=== PATIENT | male | born 1990 | race Caucasian/White ===

== ENCOUNTER → 2019-12-17 14:51 | Outpatient (BNVA) | payer OTHER, SELFPAY | PROVIDERS: Visit Provider Nurse Practitioner Family | DX: R05 Cough (principal); R43.0 Anosmia; R43.2 Parageusia; R19.7 Diarrhea, unspecified; R51 Headache | CPT/HCPCS: 87635 ==

== ENCOUNTER 2020-06-12 19:26 | Emergency (ER) | payer OTHER, SELFPAY ==
[2020-06-12 19:30] VITALS: BP 148/71; PULSE 108; RESP 18; TEMP 36.9; O2SAT 96; BMI 25.1
[2020-06-12] MEDS: ondansetron 2 mg/ML SDV 2 mL 4 MG IVP (20:01)
[2020-06-12] MEDS: sodium chloride 0.9% 1,000 ML 999 ML IV (20:01)
[2020-06-12 20:03] VITALS: BP 129/83; PULSE 94; O2SAT 98
--- NOTE | 2020-06-12 20:08 | CTR_ITS ---
PROCEDURE INFORMATION: Exam: CT Abdomen And Pelvis With Contrast Exam date and time: 06/12/2020 8:11 PM Age: 29 years old Clinical indication: Nausea and vomiting and other: Black tarry stool; Abdominal pain; Generalized; Additional info: Abd pain TECHNIQUE: Imaging protocol: Computed tomography of the abdomen and pelvis with contrast. Radiation optimization: All CT scans at this facility use at least one of these dose optimization techniques: automated exposure control; mA and/or kV adjustment per patient size (includes targeted exams where dose is matched to clinical indication); or iterative reconstruction. Contrast material: OMNI 300; Contrast volume: 95 ml; Contrast route: INTRAVENOUS (IV); COMPARISON: No relevant prior studies available. RADIATION DOSE METRICS: Total DLP (mGy-cm): 400.82 FINDINGS: Liver: Normal. No mass. Gallbladder and bile ducts: Normal. No calcified stones. No ductal dilation. Pancreas: Normal. No ductal dilation. Spleen: Normal. No splenomegaly. Adrenal glands: Normal. No mass. Kidneys and ureters: Normal. No hydronephrosis. Stomach and bowel: No bowel obstruction. No bowel perforation. Enteric contrast throughout the large bowel is noted. The wall left colon is mildly thickened diffusely, but this is of indeterminate significance. The bowel is relatively nondistended at the time of imaging. There is no appreciable pericolonic inflammatory fat stranding. No obvious focal bowel mass. Appendix: Normal appendix. Intraperitoneal space: No intraperitoneal fluid collection. Vasculature: Abdominopelvic vascular structures are patent and unremarkable. Lymph nodes: Unremarkable. No enlarged lymph nodes. Urinary bladder: Unremarkable as visualized. Reproductive: Unremarkable as visualized. Bones/joints: Unremarkable. No acute fracture. Soft tissues: Unremarkable. CT/CT abdomen pelvis w con* [id number] IMPRESSION: The wall of the left colon is mildly thickened, but there is also nondistention of the bowel. No pre should below pericolonic inflammatory changes are identified to suggest acute colitis. Radiation Dose CTDIVOL = (mGy): DLP = 400.82 (mGy-cm)
[2020-06-12] MEDS: iohexol 300 mg/mL 100 mL Btl IV (20:20)
--- NOTE | 2020-06-12 20:20 | W.ED.NAVMDI ---
HPI - Nausea/Vomiting/Diarrhea General: Chief complaint: Nausea/Vomiting/Diarrhea Stated complaint: stool like black jello, vomiting blood Time Seen by Provider: 06/12/20 19:53 Source: patient Mode of arrival: ambulatory Limitations: no limitations History of Present Illness: HPI Narrative: 29-year-old male who states he has had vomiting along with abdominal cramping type pain over the last 2 days. He states he is also had some diarrhea. He states his stools been dark he vomited up blood today. He states pain is currently a 3 out of 10. Denies any worsening improving factors. Denies any known sick contacts. Associated nausea: Yes Associated symtoms: Reports nausea; Denies chest pain, dysuria or headache(s) Review of Systems Const: Denies: fever(s), chills, body aches or change in appetite Eyes: Denies: blurry vision or eye discomfort ENMT: Denies: throat pain or dental pain Card: Denies: chest pain Resp: Denies: dyspnea GI: Reports: abdominal pain, nausea, vomiting and hematemesis : Denies: dysuria Musc: Denies: neck pain or back pain Skin/Breast: Denies: rash Neuro: Denies: headache(s) Psych: Denies: depression Blayne/Lymph: Denies: easy bruising All/Imm: Denies: urticaria Physical Exam Const: COMMON NORMALS: no acute distress, patient oriented x3 and healthy appearing HENMT: COMMON NORMALS: normocephalic and atraumatic HEAD & SCALP: normocephalic and atraumatic Eye: COMMON NORMALS: Equal, round and reactive pupils present and EOMs intact bilaterally PUPIL: Yes Equal, round and reactive pupils present Neck/C-Spine: COMMON NORMALS: full ROM and supple Chest: COMMONS NORMALS: normal inspection of the chest and normal palpation of entire chest wall Resp: COMMON NORMALS: normal respiratory effort, No retractions, No use of accessory muscles and clear to auscultation bilaterally AUSCULTATION: clear to auscultation bilaterally Cardio: COMMON NORMALS: regular rate, regular rhythm and No murmurs present (Cardio) RATE: regular rate RHYTHM: regular rhythm GI: COMMON NORMALS: Normal to inspection, nondistended, normoactive bowel sounds present, Soft to palpation, non-tender and no masses PALPATION: Yes Soft to palpation : OTHER: Rectal exam shows no blood in stool and is Hemoccult negative Extremity: COMMON NORMALS: normal to inspection and full ROM Neuro: COMMON NORMALS: patient oriented x3, moves all extremities and no focal motor deficits Psych: COMMON NORMALS: mental status grossly normal, Normal thought process present and cooperative THOUGHT PROCESS: Normal thought process present Skin: COMMON NORMALS: no rashes or lesions noted and no wounds GENERAL SKIN EXAM: no rashes or lesions noted Course Vital Signs: Vital signs: Vital Signs Temperature 98.5 F 06/12/20 19:30 Pulse Rate 88 06/12/20 20:41 Respiratory Rate 18 06/12/20 19:30 Blood Pressure 141/92 06/12/20 20:41 Pulse Oximetry 98 06/12/20 20:41 MDM - Nausea/Vomiting/Diarrhea MDM Narrative: Medical decision making narrative: 29-year-old male presents here with vomiting. He is well-appearing here and rectal exam showed no blood in his stool. Patient could have a Kathryn-Ware Fidencio but has not had any vomiting here. CT scan here is normal as well. He feels much improved after Reglan will prescribe Reglan for home. We will have him follow-up with surgery and he is return if worsening. He understands agrees to plan. Lab Data: Labs: Lab Results 06/12/20 06/12/20 06/12/20 Range/Units 20:00 20:00 20:00 WBC 8.3 (4.0-10.0) 10^3/ uL RBC 5.66 H (4.1-5.3) 10^6/u L Hgb 17.1 H (11.7-16.6) g/dL Hct 50.6 (42.0-52.0) % MCV 89.4 (80-94) fL MCH 30.2 (28.0-34.0) pg MCHC 33.8 (30.0-36.0) g/dL RDW 13.5 (12.1-15.1) % Plt Count 368 (130-400) 10^3/c mm MPV 10.0 (7.4-10.4) fL Neut % (Auto) 63.7 % Lymph % (Auto) 28.5 % Karnes % (Auto) 5.2 % Eos % (Auto) 1.6 % Baso % (Auto) 0.5 % Neut # (Auto) 5.26 (1.8-7.7) 10^3/u L Lymph # (Auto) 2.4 (0.8-4.8) 10^3/u L [place]es # (Auto) 0.4 (0.2-0.9) 10^3/u L Eos # (Auto) 0.1 (0.0-0.8) 10^3/u L Baso # (Auto) 0.0 (0.0-0.1) 10^3/u L Nucleated RBC % (a uto) 0 % Nucleated RBCs # 0.0 /100WBC PT 13.60 (12.1-14.9) SECO NDS INR 1.01 (0.8-1.2) Sodium 139 (136-145) mmol/L Potassium 4.4 (3.5-5.1) mmol/L Chloride 100 (98-107) mmol/L Carbon Dioxide 27 (22-29) mmol/L Anion Gap 16.4 (5-19) BUN 12 (6-20) mg/dL Creatinine 0.8 (0.7-1.2) mg/dL GFR Calculation 116.0 (90-130) mL/min Glucose 81 (65-115) mg/dL Calculated Osmolal ity 287 (285-295) mOsm/k g Calcium 9.3 (8.5-10.5) mg/dL Total Bilirubin 0.3 (0.15-1.2) mg/dL AST 14 (0-40) U/L ALT 20 (0-41) U/L Alkaline Phosphata se 67 (40-130) IU/L Total Protein 7.8 (6.6-8.7) g/dL Albumin 4.8 (3.5-5.2) g/dL Globulin 3.0 (1.3-4.6) g/dL Lipase 33 (13-60) U/L Imaging Data^: CT Abd/Pel: Attestation: I personally reviewed and interpreted this imaging study as follows: Radiologist's impression: [address] [address] [address] Scan Report Signed Patient: Mika Gamboa Unit #: [id number] : 1990 Age/Sex: 29 / M ADM Date: 06/12/20 Loc: ER Room/Bed: Attending Dr: Ordering Provider/Ordering MD: Curtis Ray MD Date of Service: 06/12/20 Procedure(s): CT abdomen pelvis w con* [id number] Accession Number(s): [id number] Report Number: [id number] PROCEDURE INFORMATION: Exam: CT Abdomen And Pelvis With Contrast Exam date and time: 06/12/2020 8:11 PM Age: 29 years old Clinical indication: Nausea and vomiting and other: Black tarry stool; Abdominal pain; Generalized; Additional info: Abd pain TECHNIQUE: Imaging protocol: Computed tomography of the abdomen and pelvis with contrast. Radiation optimization: All CT scans at this facility use at least one of these dose optimization techniques: automated exposure control; mA and/or kV adjustment per patient size (includes targeted exams where dose is matched to clinical indication); or iterative reconstruction. Contrast material: OMNI 300; Contrast volume: 95 ml; Contrast route: INTRAVENOUS (IV); COMPARISON: No relevant prior studies available. RADIATION DOSE METRICS: Total DLP (mGy-cm): 400.82 FINDINGS: Liver: Normal. No mass. Gallbladder and bile ducts: Normal. No calcified stones. No ductal dilation. Pancreas: Normal. No ductal dilation. Spleen: Normal. No splenomegaly. Adrenal glands: Normal. No mass. Kidneys and ureters: Normal. No hydronephrosis. Stomach and bowel: No bowel obstruction. No bowel perforation. Enteric contrast throughout the large bowel is noted. The wall left colon is mildly thickened diffusely, but this is of indeterminate significance. The bowel is relatively nondistended at the time of imaging. There is no appreciable pericolonic inflammatory fat stranding. No obvious focal bowel mass. Appendix: Normal appendix. Intraperitoneal space: No intraperitoneal fluid collection. Vasculature: Abdominopelvic vascular structures are patent and unremarkable. Lymph nodes: Unremarkable. No enlarged lymph nodes. Urinary bladder: Unremarkable as visualized. Reproductive: Unremarkable as visualized. Bones/joints: Unremarkable. No acute fracture. Soft tissues: Unremarkable. CT/CT abdomen pelvis w con* [id number] IMPRESSION: The wall of the left colon is mildly thickened, but there is also nondistention of the bowel. No pre should below pericolonic inflammatory changes are identified to suggest acute colitis. Radiation Dose CTDIVOL = (mGy): DLP = 400.82 (mGy-cm) Discharge Plan Discharge Patient Disposition: Home Clinical Impression: Hematemesis Vomiting Qualifiers: Vomiting type: unspecified Vomiting Intractability: non-intractable Nausea presence: with nausea Qualified Code(s): R11.2 - Nausea with vomiting, unspecified Condition: Stable Prescriptions: New Protonix 40 mg tablet,delayed release (DR/EC) 40 mg PO DAILY Qty: 60 RF: 0 Reglan 10 mg tablet 10 mg PO Q6H PRN (Reason: nausea and vomiting) Qty: 20 RF: 0 No Action Prilosec OTC 20 mg Tablet,Delayed Release (Dr/Ec) 20 mg PO DAILY@0800 RF: 0 Discharge Orders: Discharge ED (Routine); Ordered 06/12/20 Ordered By: Curtis Ray Referrals: Jose F Burns MD [Physician] - 1-3 days Discharge Diet: Advance as tolerated Discharge Activity: Resume usual activity Patient Instructions: Acute Nausea and Vomiting (ED) Coding Level of Care Code ED Refinery Operator Reforming Unit for Chg Fwd Exam Comprehensive
[2020-06-12 20:35] LABS: Basophils % 0.5 %; Eosinophils # 0.1 10^3/uL (0.0-0.8); Eosinophils % 1.6 %; Hematocrit 50.6 % (42.0-52.0); Hemoglobin 17.1 g/dL (11.7-16.6); Lymphocytes # 2.4 10^3/uL (0.8-4.8); Lymphocytes % 28.5 %; Mean Corpuscular HGB Conc 33.8 g/dL (30.0-36.0); Mean Corpuscular Hemoglobin 30.2 pg (28.0-34.0); Mean Corpuscular Volume 89.4 fL (80-94); Monocytes # 0.4 10^3/uL (0.2-0.9); Monocytes % 5.2 %; Neutrophils # 5.26 10^3/uL (1.8-7.7); Neutrophils % 63.7 %; Nucleated Red Blood Cells % 0 %; Platelet Count 368 10^3/cmm (130-400); Red Blood Count 5.66 10^6/uL (4.1-5.3); Red Cell Distribution Width 13.5 % (12.1-15.1); White Blood Count 8.3 10^3/uL (4.0-10.0)
[2020-06-12] MEDS: diphenhydrAMINE 50 mg/mL SDV 1mL IVP (20:38)
[2020-06-12] MEDS: metoclopramide 5 mg/mL SDV 2 mL 10 MG IVP (20:39)
[2020-06-12 20:41] VITALS: BP 141/92; PULSE 88; O2SAT 98
[2020-06-12 21:01] LABS: INR 1.01 (0.8-1.2)
[2020-06-12 21:25] LABS: Alanine Aminotransferase 20 U/L (0-41); Albumin Level 4.8 g/dL (3.5-5.2); Alkaline Phosphatase 67 IU/L (40-130); Anion Gap 16.4 (5-19); Aspartate Amino Transferase 14 U/L (0-40); Blood Urea Nitrogen 12 mg/dL (6-20); Calcium 9.3 mg/dL (8.5-10.5); Carbon Dioxide 27 mmol/L (22-29); Chloride 100 mmol/L (98-107); Glucose 81 mg/dL (65-115); Lipase 33 U/L (13-60); Osmolality Calculated 287 mOsm/kg (285-295); Potassium 4.4 mmol/L (3.5-5.1); Sodium 139 mmol/L (136-145); Total Bilirubin 0.3 mg/dL (0.15-1.2); Total Protein 7.8 g/dL (6.6-8.7)
[2020-06-12 21:40] VITALS: BP 106/66; PULSE 91; O2SAT 95
== END 2020-06-12 21:41 | disposition home or self-care (01) ==
PROVIDERS: Emergency Provider Emergency Medicine
DX: K92.0 Hematemesis (principal)
CPT/HCPCS: 12345; 74177; 80053; 83690; 85025; 85610; 96361; 96374; 96375; 99283; J1200; J2405; J2765; J7030; Q9967

== ENCOUNTER 2020-06-19 15:56 | Emergency (ER) | payer SELFPAY ==
[2020-06-19 16:03] VITALS: BP 145/79; PULSE 108; RESP 26; TEMP 36.4; O2SAT 98; BMI 26.4
--- NOTE | 2020-06-19 16:11 | XRR_ITS ---
PROCEDURE INFORMATION: Exam: XR Left Hip with Pelvis when Performed Exam date and time: 06/19/2020 4:26 PM Age: 29 years old Clinical indication: Injury or trauma; Fall; Blunt trauma (contusions or hematomas); Left; Hip TECHNIQUE: Imaging protocol: XR Left hip with pelvis when performed. Views: 2 or 3 views. COMPARISON: CT abdomen pelvis w con* [id number] 06/12/2020 8:11 PM FINDINGS: Bones/joints: Unremarkable. No acute fracture. Soft tissues: Unremarkable. XR/XR hip LT 2-3V wo/w pel* [id number] IMPRESSION: No acute findings.
--- NOTE | 2020-06-19 16:11 | XRR_ITS ---
PROCEDURE INFORMATION: Exam: XR Left Ribs with PA Chest, 3 Views Exam date and time: 06/19/2020 4:26 PM Age: 29 years old Clinical indication: Injury or trauma; Fall; Rib area, left side; Blunt trauma TECHNIQUE: Imaging protocol: XR Left ribs 3 views with PA chest. COMPARISON: CR Chest 1 [place] [id number] 12/06/2018 7:31 AM FINDINGS: Lungs: Unremarkable. No consolidation. Pleural spaces: Unremarkable. No pleural effusion. No pneumothorax. Heart/Mediastinum: Unremarkable. No cardiomegaly. Bones/joints: Unremarkable. XR/XR ribs LT mn 3V w CXR1V [id number] IMPRESSION: No acute findings.
--- NOTE | 2020-06-19 17:11 | W.ED.FALL ---
HPI - Fall General: Chief Complaint: Fall Stated Complaint: FALL ON ICE/INJ TO L SIDE Time Seen by Provider: 06/19/20 17:04 Source: patient Mode of arrival: ambulatory Limitations: no limitations History of Present Illness: HPI Narrative: Patient is a 29-year-old male who presents to ED today for evaluation after a slip and fall on ice. Patient tells me he was carrying his daughter when he slipped and fell on ice and landed onto his left side. He is complaining of left hip pain and left rib pain. Patient is able to ambulate. He is not complaining of shortness of breath or difficulty breathing. He has no other complaints or noted injuries at this time. MD complaint: fall Onset (ago): hour(s) Fall from: standing Fall witnessed: yes, by bystander Place fall occurred: home Loss of consciousness: None Prolonged down time: no Symptoms prior to fall: none Context: tripped/slipped Location of injury: chest (L ribs) Associated symptoms-after fall: Reports no associated symptoms and chest pain (L rib pain); Denies abdominal pain, headache(s), lightheadedness or neck pain Review of Systems Eyes: Denies: change in vision or blurry vision Card: Reports: chest pain (L rib pain); Denies: irregular heart rhythm, edema, lightheadedness, syncope, pre-syncope or dyspnea on exertion Resp: Denies: dyspnea, hemoptysis or chest congestion GI: Denies: abdominal pain Musc: Reports: joint pain (L hip); Denies: neck pain, back pain, extremity pain, extremity swelling or joint swelling Neuro: Denies: headache(s) [facility] PFSH: Family History (Updated 06/16/20 @ 11:00 by Deborah Nelson RN) Denies family history of Anesthesia complication Bleeding disorder Physical Exam Const: COMMON NORMALS: no acute distress, average body habitus, patient oriented x3, no limitations, healthy appearing, alert and well nourished ORIENTATION/CONSCIOUSNESS: Yes oriented to person, Yes oriented to place and Yes oriented to time Chest: COMMONS NORMALS: normal inspection of the chest OTHER: TTP L mid axillary ribs; no crepitus; no ecchymosis noted Resp: COMMON NORMALS: normal respiratory effort and clear to auscultation bilaterally EFFORT & INSPECTION: Yes able to speak in complete sentences AUSCULTATION: clear to auscultation bilaterally Cardio: COMMON NORMALS: regular rate and regular rhythm RATE: regular rate RHYTHM: regular rhythm : COMMON NORMALS: Yes no CVA tenderness BLADDER/KIDNEY EXAM: Yes no CVA tenderness Back/Pelvis: COMMON NORMALS: no CVA tenderness, thoracic and lumbar spine normal to inspection, no thoracic nor lumbar tenderness, thoraco-lumbar ROM normal and straight leg raise negative bilaterally PELVIS: Yes tenderness over symphysis pubis on the left Extremity: COMMON NORMALS: normal to inspection and full ROM GENERAL: Yes normal exam except as noted Neuro: SULY COMA SCALE: document GCS findings Suly coma scale eye opening: Spontaneous Suly coma scale verbal response: Orientated [place] coma scale motor response: Obey commands Suly coma scale total score: 15 COMMON NORMALS: patient oriented x3, moves all extremities, no focal motor deficits and no sensory deficits noted SENSORIUM/ORIENTATION: Yes alert, Yes oriented to person, Yes oriented to place and Yes oriented to time Skin: COMMON NORMALS: no rashes or lesions noted GENERAL SKIN EXAM: no rashes or lesions noted Course Vital Signs: Vital signs: Vital Signs Temperature 97.5 F L 06/19/20 16:03 Pulse Rate 108 H 06/19/20 16:03 Respiratory Rate 26 H 06/19/20 16:03 Blood Pressure 145/79 06/19/20 16:03 Pulse Oximetry 98 06/19/20 16:03 MDM - Fall Imaging Data^: XR L hip/pelvis: Radiologist's impression: [address] [place] [address] XRay Report Signed Patient: Mika Gamboa Unit #: [id number] : 1990 Age/Sex: 29 / M ADM Date: 06/19/20 Loc: ER Room/Bed: Attending Dr: Ordering Provider/Ordering MD: Kathy Rodney Sr, [facility]- Date of Service: 06/19/20 Procedure(s): XR hip LT 2-3V wo/w pel* [id number] Accession Number(s): [id number] Report Number: [id number] PROCEDURE INFORMATION: Exam: XR Left Hip with Pelvis when Performed Exam date and time: 06/19/2020 4:26 PM Age: 29 years old Clinical indication: Injury or trauma; Fall; Blunt trauma (contusions or hematomas); Left; Hip TECHNIQUE: Imaging protocol: XR Left hip with pelvis when performed. Views: 2 or 3 views. COMPARISON: CT abdomen pelvis w con* [id number] 06/12/2020 8:11 PM FINDINGS: Bones/joints: Unremarkable. No acute fracture. Soft tissues: Unremarkable. XR/XR hip LT 2-3V wo/w pel* [id number] IMPRESSION: No acute findings. Dictated By: Carrington Chacon Signed By: Carrington Chacon Signed Date/Time: 06/19/201656 DD/ 55 XR L ribs: Radiologist's impression: [address] [address] XRay Report Signed Patient: Mika Gamboa Unit #: [id number] : 1990 Age/Sex: 29 / M ADM Date: 06/19/20 Loc: ER Room/Bed: Attending Dr: Ordering Provider/Ordering MD: Kathy Rodney Sr, [facility] Date of Service: 06/19/20 Procedure(s): XR ribs LT mn 3V w CXR1V [id number] Accession Number(s): [id number] Report Number: [id number] PROCEDURE INFORMATION: Exam: XR Left Ribs with PA Chest, 3 Views Exam date and time: 06/19/2020 4:26 PM Age: 29 years old Clinical indication: Injury or trauma; Fall; Rib area, left side; Blunt trauma TECHNIQUE: Imaging protocol: XR Left ribs 3 views with PA chest. COMPARISON: CR Chest 1 [place] [id number] 12/06/2018 7:31 AM FINDINGS: Lungs: Unremarkable. No consolidation. Pleural spaces: Unremarkable. No pleural effusion. No pneumothorax. Heart/Mediastinum: Unremarkable. No cardiomegaly. Bones/joints: Unremarkable. XR/XR ribs LT mn 3V w CXR1V [id number] IMPRESSION: No acute findings. Dictated By: Carrington Chacon Signed By: Carrington Chacon Signed Date/Time: 06/19/201656 DD/ 54 Discharge Plan Discharge Patient Disposition: Home Clinical Impression: Acute pain of left hip Fall from slipping on ice Qualifiers: Encounter type: initial encounter Qualified Code(s): W00.9XXA - Unspecified fall due to ice and snow, initial encounter Contusion of rib on left side Qualifiers: Encounter type: initial encounter Qualified Code(s): S20.212A - Contusion of left front wall of thorax, initial encounter Condition: Stable Prescriptions: No Action Protonix 40 mg tablet,delayed release (DR/EC) 40 mg PO BID Qty: 60 RF: 0 ondansetron HCl [Zofran] 4 mg tablet 4 mg PO Q6H PRN (Reason: nausea and vomiting) Qty: 60 RF: 0 sucralfate [Carafate] 1 gram tablet 1 g PO Q6H Qty: 60 RF: 0 Prilosec OTC 20 mg Tablet,Delayed Release (Dr/Ec) 20 mg PO DAILY@0800 RF: 0 Discharge Orders: Discharge ED (Routine); Ordered 06/19/20 Ordered By: Mariaa Bergman Patient Instructions: Opioid Safety Coding Level of Care Code ED Integration Software Engineer for [employer]
== END 2020-06-19 17:18 | disposition home or self-care (01) ==
PROVIDERS: Emergency Provider Physician Assistant
DX: S20.212A Contusion of left front wall of thorax, initial encounter (principal); W00.9XXA Unspecified fall due to ice and snow, initial encounter
CPT/HCPCS: 71101; 73502; 99283

== ENCOUNTER → 2020-06-28 13:55 | Outpatient (BNVA) | payer SELFPAY | PROVIDERS: Visit Provider Surgery | DX: Z20.822 Contact with and (suspected) exposure to COVID-19 (principal); R10.9 Unspecified abdominal pain | CPT/HCPCS: 87635 ==

== ENCOUNTER 2020-07-03 08:20 | Day surgery (SDC) | payer SELFPAY ==
[2020-07-01 14:05] VITALS: BMI 26.4
[2020-07-03 08:30] VITALS: BP 131/82; PULSE 61; RESP 18; TEMP 36.6; O2SAT 96
[2020-07-03] MEDS: sodium chloride 0.9% 1,000 ML 30 ML IV (08:52)
--- NOTE | 2020-07-03 08:53 | W.PM.OPSUD ---
Surgery/Procedure H&P Update DATE OF PROCEDURE: July 03, 2020 DATE H&P PERFORMED: 06/27/20 H&P UPDATE INFORMATION: I have reviewed H&P completed within last 30 days, I have examined patient prior to procedure and No changes to prior documentation PREOP DIAGNOSIS: upper gi symptoms PLANNED PROCEDURE: Operation Date: 07/03/20 09:45 Proposed Procedures p EGD 07043 R10.9(Not Applicable) - Jose F Burns MD
--- NOTE | 2020-07-03 09:43 | ANES.PREANE2 ---
Pre-Anesthetic Assessment Pre-Anesthetic Assessment: Height/Weight: Height 1.75 m Weight 81.193 kg Temp Pulse Resp BP Pulse Ox 98 F 61 18 131/82 96 07/03/20 08:30 07/03/20 08:30 07/03/20 08:30 07/03/20 08:30 07/03/20 08:30 Preop Diagnosis: upper gi symptoms Proposed Procedure: Operation Date: 07/03/20 09:45 Proposed Procedures p EGD 00458 R10.9(Not Applicable) - Jose F Burns MD Was Beta Drew taken within 24 hours: N/A Last intake: Intake Last Liquid Date 07/02/20 Last Liquid Time 23:45 Last Solid Date 07/02/20 Last Solid Time 23:30 Social: Social History: Tobacco and No alcohol Exam: Pre-Anes Outpt Exam: alert, oriented x 3, clear to auscultation bilaterally and regular rate & rhythm Airway: Submandibular: WNL Cervical ROM: WNL MP: 2 Additional comments: Multiple caries Pulmonary: Pulmonary: COPD GI: GI: GERD Anesthetic Plan: ASA status: 2 Anesthesia: MAC Risk of > 500 ml blood loss (7ml/kg in children): No Meds/Allergies Current Medications: Current Medications Generic Name Dose Route Start Last Admin Trade Name Freq PRN Reason Stop Dose Admin Sodium Chloride 1,000 mls @ 30 ml s/hr 07/03/20 08:30 07/03/20 08:52 Sodium Chloride 0.9% IV 07/04/20 08:29 30 mls/hr .Q24H AIDEN Administration PFSH Anesthesia PFSH: Family History (Updated 06/16/20 @ 11:00 by Deborah Nelson RN) Denies family history of Anesthesia complication Bleeding disorder Data Anesthesia Cardiac Studies: No Data to Display
[2020-07-03 10:22] VITALS: BP 118/60; PULSE 60; RESP 16; TEMP 36.4; O2SAT 97
--- NOTE | 2020-07-03 10:23 | ANE.PACU2 ---
Inpatient post-anesthesia follow up: Airway intact: Yes Vital signs: Temperature 98 F Pulse Rate 61 Respiratory Rate 18 Blood Pressure 131/82 Pulse Oximetry 96 Oxygen Delivery Me thod Room Air Oxygen Flow Rate Fraction of Inspir ed Oxygen Hydration adequate: Yes Nausea and vomiting: No Pain level: 1 Mental status: Baseline
[2020-07-03 10:31] VITALS: BP 119/68; PULSE 62; RESP 18; O2SAT 98
--- NOTE | 2020-07-03 11:43 | ANE.PACU2 ---
Inpatient post-anesthesia follow up: Airway intact: Yes Vital signs: Temperature 97.6 F Pulse Rate 62 Respiratory Rate 18 Blood Pressure 119/68 Pulse Oximetry 98 Oxygen Delivery Me thod Room Air Oxygen Flow Rate Fraction of Inspir ed Oxygen Hydration adequate: Yes Nausea and vomiting: No Pain level: 1 Mental status: Baseline
== END 2020-07-03 10:41 | disposition home or self-care (01) ==
PROVIDERS: Visit Provider Surgery
PROC: 0DJ08ZZ Inspection of Upper Intestinal Tract, Via Natural or Artificial Opening Endoscopic (ICD-10-PCS; CPT 43235; principal; 2020-07-03 09:45)
DX: R10.9 Unspecified abdominal pain (principal); R11.2 Nausea with vomiting, unspecified; J44.9 Chronic obstructive pulmonary disease, unspecified; K21.9 Gastro-esophageal reflux disease without esophagitis
CPT/HCPCS: 43235; J2704; J7030

== ENCOUNTER 2020-07-09 07:34 | Outpatient (CLI) | payer SELFPAY ==
--- NOTE | 2020-07-09 08:00 | NM_ITS ---
WS: [id number] NUCLEAR MEDICINE HIDA SCAN WITH GALLBLADDER EJECTION FRACTION HISTORY: R10.9 - Unspecified abdominal pain COMPARISON: CT 06/12/2020 TECHNIQUE: The patient was intravenously injected with 8.2 mCi of TC99m Mebrofenin. Immediate imaging over the right upper quadrant was followed by 5 minute image and additional images for a total of 60 minutes. Normal uptake of radiotracer throughout the liver. Activity identified in the gallbladder at 10 minutes and well distended by 60 minutes. Activity in the proximal small bowel was seen by 10 minutes. Good washout of the radiotracer from the liver by 60 minutes. The patient then drank 8 ounces of Ensure Plus. Ejection fraction at 60 minutes was 43%. Normal GB ej ection fraction is 35-75%. Post fatty meal symptoms: None. NM/NM hepatobiliary w phar* [id number] IMPRESSION: 1. Normal HIDA scan. 2. Normal gallbladder ejection fraction.
== END 2020-07-09 07:35 | disposition home or self-care (01) ==
PROVIDERS: Visit Provider Surgery
DX: R10.9 Unspecified abdominal pain (principal)
CPT/HCPCS: 78227; A9537

== ENCOUNTER 2021-02-18 16:03 | Emergency (ER) | payer SELFPAY ==
--- NOTE | 2021-02-18 16:09 | ECG_ITS ---
[facility] Test Date: 2021-02-18 Pat Name: Mika Gamboa Department: Room: Gender: Male Driver/Refuse Collector: : 1990 Requested By: Randy Churchill Order Number: [id number] Lobo MD: Yadira Cuellar M.D. Measurements Intervals [place] Rate: 94 P: 35 TN: 160 QRS: 8 QRSD: 102 T: 33 QT: 341 QTc: 426 Interpretive Statements SINUS RHYTHM No previous ECG available for comparison Electronically Signed On 02-18-2021 20:02:41 CDT by Yadira Cuellar M.D. [email or web address]
--- NOTE | 2021-02-18 16:09 | XR_ITS ---
WS: [id number] PORTABLE CHEST HISTORY: Cough COMPARISON: 06/19/2020 Lungs are clear and well expanded. No pleural effusion or pneumothorax. Cardiac size: Normal. Mediastinum/Aorta: Normal mediastinum. No osseous abnormality seen. XR/XR chest 1V portable [id number] IMPRESSION: Unremarkable portable chest.
--- NOTE | 2021-02-18 16:10 | ED_ITS ---
HPI - General Adult General: Chief complaint: Allergic Reaction Stated complaint: ALLERGIC REACTION Time Seen by Provider: 02/18/21 16:07 History of Present Illness: HPI narrative: This patient is a 30-year-old male who presents to the emergency department for acute allergic reaction. Patient was eating a bowl of chili with beans and it had a sudden allergic reaction. 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 Patient did take 50 mg of Benadryl without improvement. Patient had significant swelling about his mouth and face. And was short of breath. EMS arrived established an IV did give the patient 0.25mg of epinephrine and 125mg Solu-Medrol and a breathing treatment. Patient and EMS state the swelling is much improved. Patient is breathing easy at this time. We will continue to monitor the patient evaluate treat further as needed Onset (ago): minute(s) Location: face Associated symptoms: Reports dyspnea; Deny chest pain, headache(s), nausea, rash, palpitations or vomiting Review of Systems General: Reports: 10 or more systems reviewed and unremarkable except in HPI and below Const: Denies: fever(s), chills, body aches or fatigue Eyes: Denies: change in vision or blurry vision ENMT: Denies: throat pain, hoarseness or mouth pain Card: Denies: chest pain, palpitations, irregular heart rhythm, edema, swelling of feet/ankles or lightheadedness Resp: Reports: dyspnea; Denies: productive cough, non-productive cough, wheezing or pain on inspiration GI: Denies: abdominal pain, nausea or vomiting : Denies: flank pain, dysuria, urinary frequency, urinary urgency or urinary hesitancy Musc: Denies: neck pain, back pain, extremity pain, extremity swelling, joint pain, joint swelling, joint redness, joint warmth or limited range of motion Skin/Breast: Reports: skin swelling; Denies: rash, pruritus, erythema or skin tenderness Neuro: Denies: headache(s), numbness in extremities or weakness in extremities Psych: Denies: anxiety or depression PFSH ED PFSH: Surgical History H/O esophagogastroduodenoscopy (07/03/20) Normal Family History Denies family history of Anesthesia complication Bleeding disorder Physical Exam Const: COMMON NORMALS: no acute distress, average body habitus, patient oriented x3, no limitations, healthy appearing, alert and well nourished HENMT: COMMON NORMALS: normocephalic, atraumatic, hearing grossly normal bilaterally, external ears normal, EAC's normal, TM's normal bilaterally, Normal external nose present, Normal nasal mucous membranes and turbinates present, moist oral mucous membranes, oropharynx normal, dentition normal and gingiva normal HEAD & SCALP: normocephalic and atraumatic NOSE: Normal external nose present and Normal nasal mucous membranes and turbinates present EXTERNAL EAR: Yes external ears normal EXTERNAL AUDITORY CANAL: EAC's normal TYMPANIC MEMBRANE: TM's normal bilaterally Neck/C-Spine: COMMON NORMALS: full ROM, no lymphadenopathy, supple, no meningeal signs, no JVD, Thyroid normal and No carotid bruits THYROID: Thyroid normal Chest: COMMONS NORMALS: normal inspection of the chest, normal palpation of entire chest wall, normal inspection of the breasts and normal palpation of the breasts Breast/axilla inspection: Yes normal inspection of the breasts BREAST/AXILLA PALPATION: Yes normal palpation of the breasts Resp: COMMON NORMALS: normal respiratory effort, No retractions, No use of accessory muscles, clear to auscultation bilaterally and percussion normal AUSCULTATION: clear to auscultation bilaterally PERCUSSION: percussion normal Cardio: COMMON NORMALS: no JVD, regular rate, regular rhythm, S1 normal heart sound present, S2 normal heart sound present, No gallops present (Cardio), No clicks present (Cardio), No murmurs present (Cardio), No rub (Cardio) and Peripheral pulses 2+ throughout RATE: regular rate RHYTHM: regular rhythm HEART SOUNDS: S1 normal heart sound present and S2 normal heart sound present PERIPHERAL PULSES: Peripheral pulses 2+ throughout GI: COMMON NORMALS: Normal to inspection, nondistended, normoactive bowel sounds present, Soft to palpation, non-tender, No hepatosplenomegaly present, no masses and no bruits PALPATION: Yes Soft to palpation and Yes No hepatosplenomegaly present : COMMON NORMALS: Yes no CVA tenderness BLADDER/KIDNEY EXAM: Yes no CVA tenderness Back/Pelvis: COMMON NORMALS: no CVA tenderness, thoracic and lumbar spine normal to inspection, no thoracic nor lumbar tenderness, thoraco-lumbar ROM normal and straight leg raise negative bilaterally Extremity: COMMON NORMALS: normal to inspection, full ROM, capillary refill normal, no joint enlargement, no clubbing, cyanosis or edema, no calf tenderness and no pedal edema Neuro: COMMON NORMALS: patient oriented x3 SENSORIUM/ORIENTATION: Yes alert MENINGEAL SIGNS: Yes no meningeal signs Course Reevaluation(s): Reevaluation #1: All symptoms resolved. Patient has no complaints at this time. Discussed at length with patient about findings and concerns. Patient be given a prescription for an EpiPen. Patient is instructed to use as instructed and follow-up with primary care physician. Patient is to avoid eating beans. Time: 17:25 Vital Signs: Vital signs: Vital Signs Temperature 97.9 F 02/18/21 16:19 Pulse Rate 84 02/18/21 16:52 Respiratory Rate 14 02/18/21 16:52 Blood Pressure 148/82 02/18/21 16:52 Pulse Oximetry 94 02/18/21 16:52 MDM - General Adult MDM Narrative: Medical decision making narrative: This patient is a 30-year-old male who presents to the emergency department for acute allergic reaction. Patient was eating a bowl of chili with beans and it had a sudden allergic reaction. 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 Patient did take 50 mg of Benadryl without improvement. Patient had significant swelling about his mouth and face. And was short of breath. EMS arrived established an IV did give the patient 0.25mg of epinephrine and 125mg Solu- Medrol and a breathing treatment. Patient and EMS state the swelling is much improved. Patient is breathing easy at this time. We will continue to monitor the patient evaluate treat further as needed All symptoms resolved. Patient has no complaints at this time. Discussed at length with patient about findings and concerns. Patient be given a prescription for an EpiPen. Patient is instructed to use as instructed and follow-up with primary care physician. Patient is to avoid eating beans. Medical Records: Attestation: I reviewed the patient's medical records. Lab Data: Attestation: I reviewed the patient's lab results. Labs: Lab Results 02/18/21 02/18/21 16:30 16:30 WBC 10.2 10^3/uL H 10 ^3/uL (4.0-10.0) RBC 4.58 10^6/uL 10^6 /uL (4.1-5.3) Hgb 14.3 g/dL g/dL (11.7-16.6) Hct 40.6 % L % (42.0-52.0) MCV 88.6 fl fl (80-94) MCH 31.2 pg pg (28.0-34.0) MCHC 35.2 g/dL g/dL (30.0-36.0) RDW 12.6 % % (12.1-15.1) Plt Count 377 10^3/cmm 10^3 /cmm (130-400) MPV 9.9 fL fL (7.4-10.4) Neut % (Auto) 51.5 % % Lymph % (Auto) 38.3 % % [place] % (Auto) 8.2 % % Eos % (Auto) 1.5 % % Baso % (Auto) 0.2 % % Neut # (Auto) 5.26 10^3/uL 10^3 /uL (1.8-7.7) Lymph # (Auto) 3.9 10^3/uL 10^3/ uL (0.8-4.8) [place] # (Auto) 0.8 10^3/uL 10^3/ uL (0.2-0.9) Eos # (Auto) 0.2 10^3/uL 10^3/ uL (0.0-0.8) Baso # (Auto) 0.0 10^3/uL 10^3/ uL (0.0-0.1) Nucleated RBC % (a uto) 0 % % Nucleated RBCs # 0.0 /100WBC /100W BC Sodium 138 mmol/L mmol/L (136-145) Potassium 3.7 mmol/L mmol/L (3.5-5.1) Chloride 105 mmol/L mmol/L (98-107) Carbon Dioxide 20 mmol/L L mmol/ L (22-29) Anion Gap 16.7 (5-19) BUN 16 mg/dL mg/dL (6-20) Creatinine 0.9 mg/dL mg/dL (0.7-1.2) GFR Calculation 100.5 mL/min mL/m in (90-130) Glucose 182 mg/dL H mg/dL (65-115) Calculated Osmolal ity 292 mOsm/kg mOsm/ kg (285-295) Calcium 8.3 mg/dL L mg/dL (8.5-10.5) Total Bilirubin 0.2 mg/dL mg/dL (0.15-1.2) AST 26 U/L U/L (0-40) ALT 33 U/L U/L (0-41) Alkaline Phosphata se 74 IU/L IU/L (40-130) Total Protein 6.2 g/dL L g/dL (6.6-8.7) Albumin 3.6 g/dL g/dL (3.5-5.2) Globulin 2.6 g/dL g/dL (1.3-4.6) EKG Data^: EKG 1: Attestation: I personally reviewed and interpreted this EKG as follows: EKG interpretation date: 02/18/21 EKG interpretation time: 16:28 Prior EKG tracings: not available for review Interpretation: Normal sinus rhythm heart rate 94 Discharge Plan Discharge Patient Disposition: Home Clinical Impression: Allergic reaction Condition: Stable Prescriptions: New epinephrine [EpiPen 2-Sixto] 0.3 mg/0.3 mL auto-injector 0.3 mg IM Q10M PRN (Reason: anaphylaxis) Qty: 2 RF: 0 No Action ondansetron HCl [Zofran] 4 mg tablet 4 mg PO Q6H PRN (Reason: nausea and vomiting) Qty: 60 RF: 0 sucralfate [Carafate] 1 gram tablet 1 g PO Q6H Qty: 60 RF: 0 Protonix 40 mg tablet,delayed release (DR/EC) 40 mg PO BID Qty: 60 RF: 2 Discharge Orders: Discharge ED (Routine); Ordered 02/18/21 Ordered By: Randy Churchill Discharge Diet: Advance as tolerated Discharge Activity: Resume usual activity Patient Instructions: Opioid Safety Activity Restrictions/Additional Instructions: Patient be given a prescription for an EpiPen. Patient is instructed to use Epipen as instructed and follow-up with primary care physician. Patient is to avoid eating beans. Coding Level of Care Code ED Accounting Director for [facility] Exam Comprehensive
[2021-02-18 16:14] VITALS: BP 132/74; PULSE 99; RESP 23; TEMP 36.7; O2SAT 96; BMI 25.8
[2021-02-18 16:19] VITALS: BP 154/79; PULSE 92; RESP 34; TEMP 36.6; O2SAT 96
[2021-02-18 16:52] VITALS: BP 148/82; PULSE 84; RESP 14; O2SAT 94
[2021-02-18 16:55] LABS: Basophils % 0.2 %; Eosinophils # 0.2 10^3/uL (0.0-0.8); Eosinophils % 1.5 %; Hematocrit 40.6 % (42.0-52.0); Hemoglobin 14.3 g/dL (11.7-16.6); Lymphocytes # 3.9 10^3/uL (0.8-4.8); Lymphocytes % 38.3 %; Mean Corpuscular HGB Conc 35.2 g/dL (30.0-36.0); Mean Corpuscular Hemoglobin 31.2 pg (28.0-34.0); Mean Corpuscular Volume 88.6 fl (80-94); Mean Platelet Volume 9.9 fL (7.4-10.4); Monocytes # 0.8 10^3/uL (0.2-0.9); Monocytes % 8.2 %; Neutrophils # 5.26 10^3/uL (1.8-7.7); Neutrophils % 51.5 %; Nucleated Red Blood Cells % 0 %; Platelet Count 377 10^3/cmm (130-400); Red Blood Count 4.58 10^6/uL (4.1-5.3); Red Cell Distribution Width 12.6 % (12.1-15.1); White Blood Count 10.2 10^3/uL (4.0-10.0)
[2021-02-18 17:08] LABS: Alanine Aminotransferase 33 U/L (0-41); Albumin Level 3.6 g/dL (3.5-5.2); Alkaline Phosphatase 74 IU/L (40-130); Anion Gap 16.7 (5-19); Aspartate Amino Transferase 26 U/L (0-40); Blood Urea Nitrogen 16 mg/dL (6-20); Calcium 8.3 mg/dL (8.5-10.5); Carbon Dioxide 20 mmol/L (22-29); Chloride 105 mmol/L (98-107); Globulin 2.6 g/dL (1.3-4.6); Glomerular Filtration Rate 100.5 mL/min (90-130); Glucose 182 mg/dL (65-115); Osmolality Calculated 292 mOsm/kg (285-295); Potassium 3.7 mmol/L (3.5-5.1); Sodium 138 mmol/L (136-145); Total Bilirubin 0.2 mg/dL (0.15-1.2); Total Protein 6.2 g/dL (6.6-8.7)
[2021-02-18 17:42] VITALS: BP 148/82; PULSE 82; RESP 16; TEMP 36.7
== END 2021-02-18 17:47 | disposition home or self-care (01) ==
PROVIDERS: Emergency Provider Emergency Medicine
DX: T78.40XA Allergy, unspecified, initial encounter (principal)
CPT/HCPCS: 71045; 80053; 85025; 93005; 99283

== ENCOUNTER 2021-05-10 15:04 | Emergency (ER) | payer SELFPAY ==
[2021-05-10] VITALS (8 sets, daily range): BP systolic 137–166; BP diastolic 68–87; PULSE 95–120; RESP 17–32; TEMP 36.5; O2SAT 91–99; BMI 25.8
--- NOTE | 2021-05-10 15:11 | ED_ITS ---
HPI - Allergic Reaction General: Chief complaint: Allergic Reaction Stated complaint: ALERGIC REATION Time Seen by Provider: 05/10/21 15:11 History of Present Illness: HPI narrative: Mr. Gamboa is a 30-year-old gentleman with significant past medical history of anaphylaxis who presents to the emergency department due to allergic reaction. Just prior to coming to the emergency department he unknowingly ate beans which he has had anaphylactic reaction to before. He began experiencing nausea, vomiting, shortness of breath, throat tightness, and itching. He took his EpiPen which perhaps mildly improved symptoms however he still has moderate to severe intensity symptoms. Overall course of symptoms has persisted. Denies other recent changes in health. No other specific known environmental exposures, exacerbating, or relieving factors identified. Review of Systems General: Reports: 10 or more systems reviewed and unremarkable except in HPI and below PFSH ED PFSH: Medical History Anaphylaxis Surgical History H/O esophagogastroduodenoscopy (07/03/20) Normal Family History Denies family history of Anesthesia complication Bleeding disorder Physical Exam Narrative: EXAM NARRATIVE: GENERAL/CONSTITUTIONAL - somewhat ill-appearing. Tachypneic and tachycardic, pale Eyes -no periorbital edema, no conjunctival injection ENMT - no pharyngeal edema. Moist mucous membranes. NECK - supple. trachea midline CARDIOVASCULAR - tachycardic rate and regular rhythm. RESPIRATORY -diminished to auscultation bilaterally. Tachypnea ABDOMEN/GI - Nontender/Nondistended. MSK - Extremities without obvious deformity or tenderness to palpation SKIN - Warm, cool, generalized erythema though no classic hives. NEURO - alert and appropriately oriented. Moves all extremities equally. PSYCH - anxious Course ED course: - Patient was seen and evaluated by me at bedside - Patient placed on cardiac monitors, IV access obtained - Initial evaluation notable for evidence of anaphylaxis. - Treatment ordered - Patient was serially observed with improvement in symptoms, he did have somnolence associated with Benadryl however this resolved at time of final evaluation. - Upon serial reexamination after treatment the patient was markedly improved - Based on patient history, evaluation, labs, and imaging as interpreted the most likely cause of the patient's condition is anaphylaxis secondary to salmeron ingested - The results of ED evaluation were discussed with the patient including prescriptions and/or symptomatic cares (if applicable) including appropriate and responsible use, followup plan, and return precautions. The patient verbalized understanding and felt safe for discharge. - Patient discharged in satisfactory condition. Vital Signs: Vital signs: Vital Signs Temperature 97.7 F 05/10/21 15:11 Pulse Rate 95 05/10/21 18:45 Respiratory Rate 20 H 05/10/21 18:45 Blood Pressure 142/87 05/10/21 18:45 Pulse Oximetry 93 05/10/21 18:45 MDM - Allergic Reaction MDM Narrative: Medical decision making narrative: Patient presented with anaphylaxis likely secondary to salmeron ingestion. Patient reports shortness of breath, nausea, vomiting, and itching indicating multisystem involvement. 1 dose of epinephrine SENIOR ACCOUNT DIRECTOR, 1 more dose in the emergency department as well as other typical anaphylaxis treatment. Did not require repeat dosage and had marked improvement of symptoms without recurrence after observation period. Acceptable for discharge Medical Records: Attestation: I reviewed the patient's medical records. Lab Data: Attestation: I reviewed the patient's lab results. Discharge Plan Discharge Patient Disposition: Home Clinical Impression: Anaphylaxis Condition: Stable Prescriptions: New prednisone 50 mg tablet 50 mg PO DAILY 5 Days Qty: 5 RF: 0 Pepcid 40 mg tablet 40 mg PO BID 5 Days Qty: 10 RF: 0 Benadryl Allergy 25 mg tablet 25 mg PO Q8H PRN (Reason: allergic reaction) 5 Days Qty: 15 RF: 0 EpiPen 2-Sixto 0.3 mg/0.3 mL auto-injector 0.3 mg IM Q10M PRN (Reason: anaphylaxis) Qty: 2 RF: 2 No Action ondansetron HCl [Zofran] 4 mg tablet 4 mg PO Q6H PRN (Reason: nausea and vomiting) Qty: 60 RF: 0 sucralfate [Carafate] 1 gram tablet 1 g PO Q6H Qty: 60 RF: 0 Protonix 40 mg tablet,delayed release (DR/EC) 40 mg PO BID Qty: 60 RF: 2 EpiPen 2-Sixto 0.3 mg/0.3 mL auto-injector 0.3 mg IM Q10M PRN (Reason: anaphylaxis) Qty: 2 RF: 0 Discharge Orders: Discharge ED (Routine); Ordered 05/10/21 Ordered By: Addison Ragland Discharge Diet: Usual diet Discharge Activity: Resume usual activity Patient Instructions: Anaphylaxis (ED) Activity Restrictions/Additional Instructions: Thank you for visiting the emergency department. You were seen and evaluated for allergic reaction. You are found of anaphylaxis. We are pleased that this improved with treatment. Allergic reactions can recur, please look out for recurrence of severe symptoms and return to the emergency department immediately. Otherwise you will be given prescriptions for prevention of recurrence. Please follow-up with your primary care provider. Return to the emergency department for worsening symptoms or anything else that you are concerned about and feel needs emergency department evaluation. Coding Level of Care Code ED Special Event Assistant for [facility]
[2021-05-10] MEDS: sodium chloride 0.9% 1,000 ML 999 ML IV (15:19)
[2021-05-10] MEDS: diphenhydrAMINE 50 mg/mL SDV 1mL IVP (15:20)
[2021-05-10] MEDS: EPINEPHrine 1 mg/mL INJ 0.3 MG IM (15:22)
[2021-05-10] MEDS: famotidine 20 mg/2 mL INJ 40 MG IVP (15:25)
[2021-05-10] MEDS: ipratropium-albuterol 3 mL Neb INHALATION (15:46)
== END 2021-05-10 18:47 | disposition home or self-care (01) ==
PROVIDERS: Emergency Provider Emergency Medicine
DX: T78.2XXA Anaphylactic shock, unspecified, initial encounter (principal)
CPT/HCPCS: 94640; 96361; 96372; 96374; 96375; 99284; J0171; J1200; J2930; J3490; J7030

== ENCOUNTER 2021-05-31 07:10 | Emergency (ER) | payer SELFPAY ==
[2021-05-31 07:28] VITALS: BP 149/89; PULSE 95; RESP 27; TEMP 36.3; O2SAT 99; BMI 26.5
--- NOTE | 2021-05-31 07:38 | XRR_ITS ---
PROCEDURE INFORMATION: Exam: XR Left Knee Exam date and time: 05/31/2021 7:38 AM Age: 30 years old Clinical indication: Pain; Knee; Left TECHNIQUE: Imaging protocol: XR Left knee. Views: 3 views. COMPARISON: No relevant prior studies available. FINDINGS: Bones/joints: No acute osseous pathology. Anatomic alignment. Soft tissues: Unremarkable soft tissues. XR/XR knee LT 3V* [id number] IMPRESSION: No acute osseous pathology.
--- NOTE | 2021-05-31 07:39 | ED_ITS ---
HPI - Extremity Problem General: Chief complaint: Extremity Problem,Nontraumatic Stated complaint: left knee injury Time Seen by Provider: 05/31/21 07:18 History of Present Illness: HPI Narrative: Patient states that he went to bed feeling just fine he woke up tonight and felt his knee pop and has been hurting ever since. Patient denies any recent injury. 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 Complaint: joint pain Onset (ago): hour(s) Pain Consistency: constant Location: left and knee Severity scale (1-10): 4 Quality: aching Radiation: none Relieving factors: immobilization Exacerbating factors: range of motion and weight bearing Associated symptoms: Reports no associated symptoms; Deny chest pain, fever(s) or rash Review of Systems Const: Denies: fever(s), chills or body aches Eyes: Denies: change in vision or blurry vision ENMT: Denies: throat pain or nasal congestion Card: Denies: chest pain or dyspnea on exertion Resp: Denies: dyspnea, productive cough or non-productive cough GI: Denies: abdominal pain, nausea or vomiting : Denies: difficulty urinating Musc: Reports: joint pain; Denies: extremity pain Skin/Breast: Denies: rash Neuro: Denies: headache(s) Psych: Denies: anxiety or depression [place]ayne/Lymph: Denies: easy bruising PFSH ED PFSH: Medical History Anaphylaxis Surgical History H/O esophagogastroduodenoscopy (07/03/20) Normal Family History Denies family history of Anesthesia complication Bleeding disorder Physical Exam Const: COMMON NORMALS: no acute distress, average body habitus and patient oriented x3 HENMT: COMMON NORMALS: normocephalic HEAD & SCALP: normal to inspection and normocephalic FACE & SINUS: normal facial exam Eye: COMMON NORMALS: conjunctivae normal GENERAL EYE: appearance normal, both eyes and all related structures CONJUNCTIVA: Yes conjunctivae normal Neck/C-Spine: COMMON NORMALS: no JVD Chest: COMMONS NORMALS: normal inspection of the chest Resp: COMMON NORMALS: normal respiratory effort and clear to auscultation bilaterally AUSCULTATION: clear to auscultation bilaterally Cardio: COMMON NORMALS: no JVD, regular rate and regular rhythm RATE: regular rate RHYTHM: regular rhythm GI: COMMON NORMALS: Normal to inspection, nondistended, normoactive bowel sounds present Extremity: COMMON NORMALS: normal to inspection LEFT LOWER EXTREMITY: Yes knee joint (Tenderness with range of motion. No \swelling noted.) Left knee: Yes inspection (Cool to touch), Yes ROM (Decreased due to pain) and Yes neurovascular exam (Intact) Neuro: COMMON NORMALS: patient oriented x3 Course Vital Signs: Vital signs: Vital Signs Temperature 97.4 F L 05/31/21 07:28 Pulse Rate 95 05/31/21 07:28 Respiratory Rate 27 H 05/31/21 07:28 Blood Pressure 149/89 05/31/21 07:28 Pulse Oximetry 99 05/31/21 07:28 MDM - Extremity (Nontraumatic) MDM Narrative: Medical decision making narrative: Patient states he felt a pop in his knee when he was in bed this morning and his knees hurt since then. Denies any other injury. Patient does drink alcohol on a fairly frequent basis. Patient states that he only had 4 beers last night. And then remember injuring his knee. Patient does not appear in any acute distress has tenderness throughout the knee. There is no swelling. Patient not interested in help with alcohol education. Patient be placed knee immobilizer given crutches and a follow-up with Ortho clinic will be made Discharge Plan Discharge Patient Disposition: Home Clinical Impression: Alcohol abuse Acute knee pain Qualifiers: Laterality: left Qualified Code(s): M25.562 - Pain in left knee Condition: Stable Prescriptions: New Celebrex 100 mg capsule 200 mg PO BID Qty: 20 RF: 0 No Action ondansetron HCl [Zofran] 4 mg tablet 4 mg PO Q6H PRN (Reason: nausea and vomiting) Qty: 60 RF: 0 sucralfate [Carafate] 1 gram tablet 1 g PO Q6H Qty: 60 RF: 0 Protonix 40 mg tablet,delayed release (DR/EC) 40 mg PO BID Qty: 60 RF: 2 EpiPen 2-Sixto 0.3 mg/0.3 mL auto-injector 0.3 mg IM Q10M PRN (Reason: anaphylaxis) Qty: 2 RF: 0 EpiPen 2-Sixto 0.3 mg/0.3 mL auto-injector 0.3 mg IM Q10M PRN (Reason: anaphylaxis) Qty: 2 RF: 2 Discharge Orders: Discharge ED (Routine); Ordered 05/31/21 Ordered By: Robert Rodney Discharge Diet: Usual diet Discharge Activity: Use walker/crutches as instructed Patient Instructions: Knee Sprain (ED) Activity Restrictions/Additional Instructions: Follow-up with medical provider as directed. Take medications as prescribed. Return to the ER or your medical provider if condition worsens. Please read and understand discharge instructions. If any questions ask please. Coding Level of Care Code ED Process Engineering Technician for [facility] Exam Comprehensive
[2021-05-31] MEDS: CELEcoxib 200 mg Capsule 400 MG PO (07:48)
--- NOTE | 2021-06-01 08:33 | DCPLANNER ---
Addendum entered by Ceci Bird 06/11/21 17:04: Patient had a follow up appointment scheduled for 06.03.[address] Guzman at ortho - patient did attend appointment. Addendum entered by Ceci Bird 06/02/21 14:19: Patient has a follow up appointment scheduled for Thursday, June 03, 2021 at 11:[address] Guzman at ortho. Clinic will call patient with appointment information. Original Note: circulation manager had message to schedule a follow up appointment for patient with ortho. circulation manager emailed patients information to Dank at ortho. Patients information will be printed and reviewed. Clinic will call patient with appointment information.
== END 2021-05-31 08:51 | disposition home or self-care (01) ==
PROVIDERS: Emergency Provider Nurse Practitioner Family
DX: M25.562 Pain in left knee (principal); F10.10 Alcohol abuse, uncomplicated
CPT/HCPCS: 29530; 73562; 99283; E0114

== ENCOUNTER 2021-06-03 16:03 | Outpatient (CLI) | payer SELFPAY | END 2021-06-03 16:04 | disposition home or self-care (01) | LOC: SPT 16:04 | PROVIDERS: Visit Provider Specialist | DX: Z46.89 Encounter for fitting and adjustment of other specified devices (principal); M25.562 Pain in left knee | CPT/HCPCS: 97760; L1832 ==

== ENCOUNTER 2023-03-05 18:17 | Emergency (ER) | payer SELFPAY ==
[2023-03-05 18:18] VITALS: BP 141/97; PULSE 98; RESP 18; TEMP 36.9; O2SAT 100; BMI 26.5
[2023-03-05 18:33] VITALS: RESP 20; O2SAT 98
[2023-03-05] MEDS: methylPREDNISolone sod succ 125 MG in water for injection-sterile 2 ML 24 MG IVP (18:34)
[2023-03-05 19:03] VITALS: BP 141/97; PULSE 71; RESP 18; O2SAT 96
--- NOTE | 2023-03-05 19:14 | W.ED.ALLEREA ---
HPI - Allergic Reaction General: Chief complaint: Allergic Reaction Stated complaint: ALLERGIC REACTION Time Seen by Provider: 03/05/23 18:20 History of Present Illness: HPI narrative: This patient is a 32-year-old white male who presents to the emergency department with an allergic reaction. Patient states he was eating dinner and evidently there were some legumes in the food. Patient states he is allergic to legumes. He developed itching and some trouble breathing. He was brought in by EMS. He was given 50 mg of Benadryl IV in route. He is feeling better upon arrival. Review of Systems General: Reports: 10 or more systems reviewed and unremarkable except in HPI and below PFSH ED PFSH: Medical History Anaphylaxis Surgical History H/O esophagogastroduodenoscopy (07/03/20) Normal Family History Denies family history of Anesthesia complication Bleeding disorder Social History Smoking and tobacco/nicotine status: former use of tobacco/nicotine Physical Exam Const: COMMON NORMALS: no acute distress, patient oriented x3 and no limitations GENERAL APPEARANCE: cooperative and comfortable HENMT: COMMON NORMALS: normocephalic, atraumatic, Normal nasal mucous membranes and turbinates present, moist oral mucous membranes and oropharynx normal HEAD & SCALP: normal to inspection, normocephalic and atraumatic FACE & SINUS: normal facial exam NOSE: Normal nasal mucous membranes and turbinates present Eye: COMMON NORMALS: Equal, round and reactive pupils present, EOMs intact bilaterally and conjunctivae normal GENERAL EYE: appearance normal, both eyes and all related structures CONJUNCTIVA: Yes conjunctivae normal PUPIL: Yes Equal, round and reactive pupils present Neck/C-Spine: COMMON NORMALS: supple and no JVD Chest: COMMONS NORMALS: normal inspection of the chest Resp: COMMON NORMALS: normal respiratory effort and clear to auscultation bilaterally AUSCULTATION: clear to auscultation bilaterally Cardio: COMMON NORMALS: no JVD, regular rate, regular rhythm, No gallops present (Cardio), No murmurs present (Cardio) and No rub (Cardio) RATE: regular rate RHYTHM: regular rhythm GI: COMMON NORMALS: Normal to inspection, nondistended, normoactive bowel sounds present, Soft to palpation and non-tender AUSCULTATION: Yes normoactive bowel sounds PALPATION: Yes Soft to palpation : COMMON NORMALS: Yes no CVA tenderness BLADDER/KIDNEY EXAM: Yes no CVA tenderness Back/Pelvis: COMMON NORMALS: no CVA tenderness and thoracic and lumbar spine normal to inspection Extremity: COMMON NORMALS: normal to inspection Neuro: COMMON NORMALS: patient oriented x3 and CN's II-XII intact bilaterally Psych: COMMON NORMALS: mental status grossly normal, Normal thought process present and cooperative THOUGHT PROCESS: Normal thought process present Skin: COMMON NORMALS: no rashes or lesions noted, turgor normal and no jaundice GENERAL SKIN EXAM: no rashes or lesions noted and turgor normal Course Vital Signs: Vital signs: Vital Signs Temperature 98.4 F 03/05/23 18:18 Pulse Rate 71 03/05/23 19:03 Respiratory Rate 18 03/05/23 19:03 Blood Pressure 141/97 03/05/23 19:03 Pulse Oximetry 96 03/05/23 19:03 Oxygen Delivery Me thod Room Air 03/05/23 18:33 MDM - Allergic Reaction Medical Decision Making Patient was given 125 mg of Solu-Medrol IV in the emergency department. He was observed for some time and symptoms have resolved. He was discharged in stable condition with a prescription for prednisone 50 mg/day for the next 3 days. I also recommended he take Benadryl [id number] every 6 hours as needed for itching. Follow-up with primary care physician as needed. No radiology studies performed this visit Discharge Plan Discharge Patient Disposition: Home Clinical Impression: Allergic reaction Condition: Stable Prescriptions: New prednisone 50 mg tablet 50 mg PO DAILY Qty: 3 0RF No Action ondansetron HCl [Zofran] 4 mg tablet 4 mg PO Q6H PRN (Reason: nausea and vomiting) Qty: 60 0RF sucralfate [Carafate] 1 gram tablet 1 g PO Q6H Qty: 60 0RF (DME) [place] hinged knee brace See Rx Instructions .Route .MEDSUPPLY Qty: 1 0RF Rx Instructions: As directed Protonix 40 mg tablet,delayed release (DR/EC) 40 mg PO BID Qty: 60 2RF EpiPen 2-Sixto 0.3 mg/0.3 mL auto-injector 0.3 mg IM Q10M PRN (Reason: anaphylaxis) Qty: 2 0RF Rx Instructions: for 2 doses EpiPen 2-Sixto 0.3 mg/0.3 mL auto-injector 0.3 mg IM Q10M PRN (Reason: anaphylaxis) Qty: 2 2RF Rx Instructions: for 2 doses Celebrex 100 mg capsule 200 mg PO BID Qty: 20 0RF Discharge Orders: Discharge ED (Routine); Ordered 03/05/23 Ordered By: Patrick Allen Patient Instructions: Opioid Safety, Pain Management 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
[2023-03-05 19:45] VITALS: BP 141/97; PULSE 77; RESP 18; O2SAT 97
== END 2023-03-05 19:45 | disposition home or self-care (01) ==
PROVIDERS: Emergency Provider Emergency Medicine
DX: T78.1XXA Other adverse food reactions, not elsewhere classified, initial encounter (principal); Z87.891 Personal history of nicotine dependence; X58.XXXA Exposure to other specified factors, initial encounter
CPT/HCPCS: 96374; 99284; J2930

== ENCOUNTER → 2023-03-25 10:39 | Outpatient (BNVA) | payer MEDICAID, SELFPAY | PROVIDERS: Visit Provider Nurse Practitioner | DX: S69.91XA Unspecified injury of right wrist, hand and finger(s), initial encounter (principal); X58.XXXA Exposure to other specified factors, initial encounter | CPT/HCPCS: 73110 ==

== ENCOUNTER 2023-05-19 21:12 | Emergency (ER) | payer SELFPAY ==
[2023-05-19 21:20] VITALS: BP 143/89; PULSE 84; RESP 20; TEMP 36.7; O2SAT 97
--- NOTE | 2023-05-19 21:25 | W.ED.DENTAL ---
HPI - Dental/Oral General: Chief complaint: Dental/Oral Stated complaint: Tooth Ache Time Seen by Provider: 05/19/23 21:19 History of Present Illness: 32-year-old male patient comes in today for complaints of right lower jaw pain. Patient reports pain for the last 2 days. Patient is unable to tolerate pain. Patient appears in moderate to severe pain. Patient has mild lower jaw facial swelling. Patient has allergies to legumes. Patient has a history of mental health illness. Review of Systems General: Reports: 10 or more systems reviewed and unremarkable except in HPI and below ENMT: Reports: dental pain PFSH ED PFSH: Medical History Anaphylaxis Surgical History H/O esophagogastroduodenoscopy (07/03/20) Normal Family History Denies family history of Anesthesia complication Bleeding disorder Social History Smoking and tobacco/nicotine status: former use of tobacco/nicotine Physical Exam Const: COMMON NORMALS: alert HENMT: COMMON NORMALS: normocephalic HEAD & SCALP: normocephalic MOUTH: Normal oral and palatal mucosa present TEETH & GINGIVA: Yes caries (Multiple dental caries), Yes gingiva abnormal edematous, tender and discolored (Redness molar right lower) and Yes poor dentition Neck/C-Spine: COMMON NORMALS: full ROM Resp: COMMON NORMALS: normal respiratory effort Cardio: COMMON NORMALS: regular rate RATE: regular rate Extremity: COMMON NORMALS: full ROM Neuro: SENSORIUM/ORIENTATION: Yes alert Skin: COMMON NORMALS: turgor normal GENERAL SKIN EXAM: turgor normal Course Vital Signs: Vital signs: Vital Signs Temperature 98.0 F 05/19/23 21:48 Pulse Rate 84 05/19/23 21:48 Respiratory Rate 20 H 05/19/23 21:48 Blood Pressure 143/89 05/19/23 21:48 Pulse Oximetry 97 05/19/23 21:48 MDM - Dental/Oral Medical Decision Making Patient comes in for dental pain and swelling of the right lower jaw. On exam patient has erythema to the gingiva of tissue of the right lower jaw with tenderness of the teeth. Differential diagnosis includes periapical abscess, gingivitis, floor mouth cellulitis, retropharyngeal abscess, infected salivary gland. No signs of severe illness is noted. Patient appears to have a periapical abscess. Patient be treated with antibiotics and medications for pain. Patient was recommended to follow-up with dentist for definitive care. Patient reported understanding. No radiology studies performed this visit Discharge Plan Discharge Patient Disposition: Home Clinical Impression: Toothache Condition: Stable Prescriptions: New amoxicillin-pot clavulanate 875-125 mg tablet 1 tab PO BID Qty: 14 0RF ketorolac 10 mg tablet 10 mg PO Q6H PRN (Reason: pain) 13 Days Qty: 10 0RF hydrocodone-acetaminophen 5-325 mg tablet 1 tab PO Q6H PRN (Reason: pain) Qty: 5 0RF No Action ibuprofen 600 mg tablet 600 mg PO Q6H PRN (Reason: pain) Qty: 14 0RF bupropion HCl [Wellbutrin XL] 150 mg tablet extended release 24 hr 150 mg PO QAM naltrexone 50 mg tablet 50 mg PO DAILY olanzapine 10 mg tablet 10 mg PO DAILY baclofen 10 mg tablet 10 mg PO TID hydroxyzine pamoate 50 mg capsule 50 mg PO TID PRN EpiPen 2-Sixto 0.3 mg/0.3 mL auto-injector 0.3 mg IM Q10M PRN (Reason: anaphylaxis) Qty: 2 2RF Rx Instructions: for 2 doses Discharge Orders: Discharge ED (Routine); Ordered 05/19/23 Ordered By: Harsh Munroe Discharge Diet: Usual diet Discharge Activity: Increase activity as tolerated Patient Instructions: Toothache (ED) Activity Restrictions/Additional Instructions: Drink plenty of water and fluids with medications. Take antibiotics as directed. Follow-up with dentist for definitive care. Return to ED for new concerns. 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
[2023-05-19] MEDS: amoxicillin-clav 875-125 mg Tablet 1 TAB PO (21:46)
[2023-05-19] MEDS: HYDROcodone-acetaminophen 10-325 mg Tablet 1 TAB PO (21:46)
[2023-05-19] MEDS: ketorolac 30 mg/mL INJ IM (21:46)
[2023-05-19 21:48] VITALS: BP 143/89; PULSE 84; RESP 20; TEMP 36.7; O2SAT 97
== END 2023-05-19 21:50 | disposition home or self-care (01) ==
PROVIDERS: Emergency Provider Nurse Practitioner Family
DX: K08.89 Other specified disorders of teeth and supporting structures (principal); Z87.891 Personal history of nicotine dependence
CPT/HCPCS: 96372; 99284; J1885

== ENCOUNTER 2023-10-21 11:18 | Emergency (ER) | payer SELFPAY ==
[2023-10-21 12:11] VITALS: BP 138/67; PULSE 65; RESP 17; TEMP 36.6; O2SAT 99
--- NOTE | 2023-10-21 12:50 | XRR_ITS ---
PROCEDURE INFORMATION: Exam: XR Left Hip Exam date and time: 10/21/2023 1:16 PM Age: 33 years old Clinical indication: Hip pain; Left hip TECHNIQUE: Imaging protocol: Radiologic exam of the left hip. Views: 2 or 3 views hip with pelvis when performed. COMPARISON: CR XR hip LT 2-3V wo/w pel* [id number] 23/05/2023 13:04 FINDINGS: Bones/joints: Again noted is remodeling of the left femoral head with flattening of the superior cortical surface. There are mixed lytic and sclerotic changes in the left femoral head suggesting avascular necrosis. Overall the appearance is unchanged from the previous study. No acute fractures are identified. Soft tissues: Unremarkable. XR/XR hip LT 2-3V wo/w pel* [id number] IMPRESSION: Relatively stable appearing changes of avascular necrosis in the left femoral head. No acute fracture is identified
--- NOTE | 2023-10-21 13:29 | W.ED.LOWEXIN ---
HPI - Extremity Injury (Lower) General: Chief Complaint: Extremity Injury, Lower Stated Complaint: left hip pain, fall Time Seen by Provider: 10/21/23 13:00 Source: patient and family (mother) Mode of arrival: ambulatory (with limp) Limitations: no limitations History of Present Illness: Patient is a 33-year-old female presents to ED today with mother for evaluation of a left hip injury that he sustained just earlier today. Patient states he was walking down a flight of stairs when his hip gave out causing him to fall directly onto the hip. Patient states back in May he was diagnosed with avascular necrosis of the hip. He has failed to follow-up with anybody due to lack of insurance. Patient states the pain in his hip limits him from working. He is ambulatory today with a limp. He states he normally has this limp. No other injury sustained during the fall. MD complaint: hip injury Onset (ago): hour(s) Injury: Left: hip Place: home Severity: severe Relieving factors: immobilization Exacerbating factors: weight bearing, movement and palpation Context: fall Associated symptoms: Reports no associated symptoms Other symptoms: none Review of Systems Musc: Reports: joint pain (L hip); Denies: neck pain, back pain, extremity pain, extremity swelling or joint swelling Neuro: Reports: difficulty walking (secondary to L hip pain); Denies: numbness in extremities, weakness in extremities or sensory changes [facility] ED PFSH: Medical History Anaphylaxis Surgical History H/O esophagogastroduodenoscopy (07/03/20) Normal Family History Denies family history of Anesthesia complication Bleeding disorder Social History Smoking and tobacco/nicotine status: former use of tobacco/nicotine Physical Exam Const: COMMON NORMALS: no acute distress, average body habitus, patient oriented x3, no limitations, healthy appearing, alert and well nourished GENERAL APPEARANCE: cooperative ORIENTATION/CONSCIOUSNESS: Yes awake, Yes oriented to person, Yes oriented to place and Yes oriented to time HENMT: COMMON NORMALS: normocephalic and atraumatic HEAD & SCALP: normal to inspection, normocephalic and atraumatic Neck/C-Spine: GENERAL: Yes normal visual inspection CERVICAL SPINE: No Cervical spine tenderness Back/Pelvis: COMMON NORMALS: thoracic and lumbar spine normal to inspection Extremity: COMMON NORMALS: normal to inspection, capillary refill normal, no joint enlargement, no clubbing, cyanosis or edema, no calf tenderness and no pedal edema GENERAL: Yes normal exam except as noted LEFT LOWER EXTREMITY: Yes hip joint Left hip: Yes inspection (normal gross inspection), Yes ROM (limited secondary to pain) and Yes neurovascular exam (normal) Neuro: COMMON NORMALS: patient oriented x3, moves all extremities, no focal motor deficits and no sensory deficits noted SENSORIUM/ORIENTATION: Yes alert, Yes oriented to person, Yes oriented to place and Yes oriented to time Skin: COMMON NORMALS: no rashes or lesions noted GENERAL SKIN EXAM: no rashes or lesions noted Course Vital Signs: Vital signs: Vital Signs Temperature 97.9 F 10/21/23 12:11 Pulse Rate 65 10/21/23 12:11 Respiratory Rate 17 10/21/23 12:11 Blood Pressure 138/67 10/21/23 12:11 Pulse Oximetry 99 10/21/23 12:11 Oxygen Delivery Me thod Room Air 10/21/23 12:11 MDM - Extremity Injury (Lower) Medical Decision Making XR without much changes from back in May. He needs follow up with ortho for his avascular necrosis. Will try and have him fill out the patient financial services specialist paperwork and see if he can get services after this. Return precautions given. All radiology interpretation(s) finalized by discharge Discharge Plan Discharge Patient Disposition: Home Clinical Impression: Avascular necrosis of bone of left hip Fall Qualifiers: Encounter type: initial encounter Qualified Code(s): W19.XXXA - Unspecified fall, initial encounter Condition: Stable Prescriptions: No Action ibuprofen 600 mg tablet 600 mg PO Q6H PRN (Reason: pain) Qty: 14 0RF bupropion HCl [Wellbutrin XL] 150 mg tablet extended release 24 hr 150 mg PO QAM naltrexone 50 mg tablet 50 mg PO DAILY olanzapine 10 mg tablet 10 mg PO DAILY baclofen 10 mg tablet 10 mg PO TID hydroxyzine pamoate 50 mg capsule 50 mg PO TID PRN EpiPen 2-Sixto 0.3 mg/0.3 mL auto-injector 0.3 mg IM Q10M PRN (Reason: anaphylaxis) Qty: 2 2RF Rx Instructions: for 2 doses amoxicillin-pot clavulanate 875-125 mg tablet 1 tab PO BID Qty: 14 0RF hydrocodone-acetaminophen 5-325 mg tablet 1 tab PO Q6H PRN (Reason: pain) Qty: 5 0RF Discharge Orders: Discharge ED (Routine); Ordered 10/21/23 Ordered By: Mariaa Bergman Activity Restrictions/Additional Instructions: As we discussed case management should contact you early next week to help set you up with your follow-up appointment with orthopedics. Continue current plan to fill out patient financial services specialist paperwork packet for the hospital. 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
[2023-10-21 15:46] VITALS: BP 138/67; PULSE 65; RESP 17; TEMP 36.6; O2SAT 99
--- NOTE | 2023-10-21 21:39 | DCPLANNER ---
messaged ortho for er f/u
== END 2023-10-21 14:00 | disposition home or self-care (01) ==
PROVIDERS: Emergency Provider Physician Assistant
DX: M87.9 Osteonecrosis, unspecified (principal); Z87.891 Personal history of nicotine dependence
CPT/HCPCS: 73502; 99283